=== PATIENT | female | born 1955 | race Two or more races ===

== ENCOUNTER → 2019-04-29 09:53 | Outpatient (CLI) | payer MEDICARE, SELFPAY ==
--- NOTE | 2019-04-29 09:58 | MM_ITS ---
PROCEDURE: MM DIG SCREENING MAMM BI W/CAD Patient Age:63Y CLINICAL INDICATION: SCREENING 63-year-old. Baseline mammogram. No hormones, no new complaints. Noncontributory family history COMPARISON: Baseline mammogram, no prior exams were available for comparison TECHNIQUE: Standard CC and MLO images were obtained. R2 CAD reviewed. FINDINGS: Moderate asymmetry, with moderate breast density towards upper-outer quadrant right breast more so than left Areas of focal density bilaterally noted and are highlighted by CAD computer review but no suspicious calcifications in either breast Left breast: 8 mm focal area of density lateral anterior breast on the CC view labeled X. It seems to dissipate on the MLO view and thus I favors most likely merely summation shadow, but would benefit from spot cc and spot MLO view. If it persist on those added views then rolled spot CC views or base degree spot view may be of benefit as well when patient returns Right breast: Area density labeled A at upper-outer quadrant a right breast is highlighted by CAD. I believe this is merely a asymmetric island of fibroglandular tissue, but would suggest a spot cc and MLO view patient returns. Again rolled CC views more 90 degree may be helpful if density persists but. Also of small 5.6 mm benign-appearing intramammary node lateral left breast-withreniform shape with central umbilication IMPRESSION: Baseline mammogram Moderate asymmetry. Areas of asymmetric focal density bilaterally noted - highlighted by CAD computer review I strongly favor these are merely areas of asymmetric fibroglandular tissue accentuated by overlapping summation shadow, but would suggest the patient return for additional spot a whole views a to further evaluate and better establish baseline. BI-RAD Category: 0 Need Additional Imaging Evaluation FOLLOW-UP: IMM Immediate Follow-up Recommended Additional views both breast recommend (A letter has been sent to the patient regarding results of the study.) Dictated by: David Davidson MD 05/01/2019 08:51 Electronically signed by David Davidson MD in [place] 05/01/2019 08:51
== END ==
PROVIDERS: PCP Family Medicine; Visit Provider Family Medicine
DX: Z12.31 Encounter for screening mammogram for malignant neoplasm of breast (principal)
CPT/HCPCS: 77067